=== PATIENT | male | born 1940 | race Caucasian/White ===

== ENCOUNTER 2017-06-22 19:58 | Emergency (ER) | payer BC ==
[2017-06-22 20:01] VITALS: BP 159/74; PULSE 80; RESP 22; TEMP 98.3; O2SAT 95
[2017-06-22] MEDS ORDERED: SODIUM CHLORIDE 0.9% FLUSH 10 ML FLUSH IVF PRN (20:45)
[2017-06-22] MEDS ORDERED: RESP: BUDESONIDE 0.5 MG/2 ML NEB NEB ONE (20:45)
[2017-06-22] MEDS ORDERED: methylPREDNISolone SOD SUCC 125 MG/2 ML VIAL IV PUSH ONE (20:45)
[2017-06-22] MEDS: RESP: ALBUTEROL 2.5 MG/IPRATROPIUM 0.5 MG NEB (SCH) INH ×2 (20:55→20:56)
--- NOTE | 2017-06-22 20:59 | PD ---
HPI Chief Complaint: Respiratory Symptoms Time Seen by Provider: 20:36 Travel History International Travel<30 days: No Contact w/Intl Traveler<30days: No Traveled to known affect area: No History of Present Illness HPI Patient is a 76-year-old male presenting to emergency for evaluation of chest congestion, wheezing, cough. Patient states his symptoms have been ongoing for 6 weeks, he reports green sputum. He denies any fever, chills, nausea, vomiting , chest pain. Patient was seen and evaluated by his primary doctor prior to leaving [place] 4 weeks ago, he has COPD and has not been utilizing his nebulizer or rescue inhaler. [facility] Past Medical History Cancer: Yes (stomach) COPD: Yes Diabetes: Yes Hypertension: Yes Social History Alcohol Use: No Tobacco Use: No (quit 15 years ago) Substance Use: No Allergies-Medications (Allergen,Severity, Reaction): Coded Allergies: No Known Allergies (Unverified , 06/22/17) Reported Meds & Prescriptions Reported Meds & Active Scripts Active Ventolin Hfa 18 GM Inh (Albuterol Sulfate) 90 Mcg/Act Aer 2 Puff INH Q4-6H PRN Azithromycin 250 Mg Tab 250 Mg PO DIRECTED Take 2 tabs (500 mg) on day 1 then 1 tab daily x 4 days. Prednisone 20 Mg Tab 40 Mg PO DAILY 7 Days Take 40 mg (2 tablets) daily for 5 days Albuterol Neb (Albuterol Sulfate) 2.5 Mg/3 Ml Neb 2.5 Mg NEB Q4HR NEB PRN Nebulizer/Adult Mask (N/A) 1 Kit Kit Kit .ROUTE DIRECTED Nebulizer 1 Mis Mis Ea .ROUTE DIRECTED Review of Systems Except as stated in HPI: all other systems reviewed are Neg General / Constitutional: No: Fever, Chills HENT: No: Headaches Cardiovascular: No: Chest Pain or Discomfort Respiratory: Positive: Cough, Shortness of Breath, Wheezing, No: Orthopnea, Pleuritic Pain Gastrointestinal: No: Nausea, Vomiting, Abdominal Pain Neurologic: No: Weakness, Dizziness, Syncope, Focal Abnormalities Physical Exam Narrative GENERAL: Overweight, well-developed, alert elderly male. Resting comfortably in no acute distress. SKIN: Warm and dry. HEAD: Atraumatic. Normocephalic. EYES: Pupils equal and round. No scleral icterus. No injection or drainage. ENT: No nasal bleeding or discharge. Mucous membranes pink and moist. NECK: Trachea midline. No JVD. CARDIOVASCULAR: Regular rate and rhythm. RESPIRATORY: Expiratory wheezing throughout, diminished in bases. No nasal flaring, no accessory muscle use. GASTROINTESTINAL: Abdomen soft, non-tender, nondistended. Hepatic and splenic margins not palpable. MUSCULOSKELETAL: Extremities without clubbing, cyanosis, or edema. No obvious deformities. NEUROLOGICAL: Awake and alert. No obvious cranial nerve deficits. Motor grossly within normal limits. Five out of 5 muscle strength in the arms and legs. Normal speech. PSYCHIATRIC: Appropriate mood and affect; insight and judgment normal. Data Data Last Documented VS Vital Signs Date Time Temp Pulse Resp B/P (MAP) Pulse Ox O2 Delivery O2 Flow Rate FiO2 06/22/17 22:36 06/22/17 21:05 20 96 Aerosol Mask 06/22/17 20:01 98.3 80 Orders Orders Chest, Pa & Lat (06/22/17 20:36) Ecg Monitoring (06/22/17 20:36) Iv Access Insert/Monitor (06/22/17 20:36) Oximetry (06/22/17 20:36) Oxygen Administration (06/22/17 20:36) Methylprednisolone So Succ Inj (Solumedr (06/22/17 20:45) Albuterol-Ipratropium Neb (Duoneb Neb) (06/22/17 20:45) Sodium Chloride 0.9% Flush (Ns Flush) (06/22/17 20:45) Budesonide Neb (Pulmicort Respule Neb) (06/22/17 20:45) Ed Discharge Order (06/22/17 22:27) [facility] Medical Decision Making Medical Screen Exam Complete: Yes Emergency Medical Condition: Yes Interpretation(s) Last Impressions Chest X-Ray 06/22/172035 Signed Impressions: Service Date/Time: Thursday, June 22, 2017 20:47 - CONCLUSION: Bibasilar discoid atelectasis and/or fibrotic scarring. Karri Ornelas MD Date Time Temp Pulse Resp B/P (MAP) Pulse Ox O2 Delivery O2 Flow Rate FiO2 06/22/17 20:01 98.3 80 22 159/74 (102) 95 Room Air Differential Diagnosis COPD exacerbation versus bronchitis versus pneumonia versus other Narrative Course Patient presented for evaluation of COPD exacerbation. We'll assess a chest x- ray, DuoNeb, budesonide and IV Solu-Medrol ordered. Chest x-ray which is read by the radiologist shows discoid atelectasis and/or scarring. Patient was given DuoNeb, budesonide and Solu-Medrol. He reports improvement in his breathing and states he does not feel short of breath. Oxygen saturation was assessed at 97% on room air. Patient will be provided with a prescription for nebulizer machine, albuterol treatments as well as azithromycin and prednisone. He is encouraged to maintain compliance with inhalers. He was encouraged to return to emergency department immediately for any new or worsening symptoms. Patient verbalized understanding of these instructions. Patient is stable for discharge. Diagnosis Primary Impression: COPD exacerbation Referrals: Primary Care Physician 3 days Patient Instructions: COPD (Chronic Obstructive Pulmonary Disease) (ED), General Instructions Additional Instructions: Take medications as directed Utilize nebulizer treatments as needed and as directed Follow-up with your primary doctor in 2-3 days Return to emergency department immediately for any new or worsening symptoms Med/Other Pt SpecificInfo: Prescription(s) given Scripts Albuterol 18 GM Inh (Ventolin Hfa 18 GM Inh) 90 Mcg/Act Aer 2 PUFF INH Q4-6H Y for SHORTNESS OF BREATH, #1 INHALER 0 Refills Prov: Juana Torres 06/22/17 Azithromycin (Azithromycin) 250 Mg Tab 250 MG PO DIRECTED for Infection, #6 TAB 0 Refills Take 2 tabs (500 mg) on day 1 then 1 tab daily x 4 days. Prov: Juana TorresP 06/22/17 Prednisone (Prednisone) 20 Mg Tab 40 MG PO DAILY for 7 Days, #14 TAB 0 Refills Take 40 mg (2 tablets) daily for 5 days Prov: Juana Torres 06/22/17 Albuterol Neb (Albuterol Neb) 2.5 Mg/3 Ml Neb 2.5 MG NEB Q4HR NEB Y for SHORTNESS OF BREATH, #180 NEBULE 0 Refills Prov: Juana Torres 06/22/17 Nebulizer/Adult Mask (Nebulizer/Adult Mask) 1 Kit Kit KIT .ROUTE DIRECTED for Breathing Treatment, #1 0 Refills Prov: Juana Torres 06/22/17 Nebulizer (Nebulizer) 1 Mis Mis EA .ROUTE DIRECTED for Breathing Treatment, #1 0 Refills Prov: Juana Torres 06/22/17 Disposition: 01 DISCHARGE HOME Condition: Stable Juana Torres Jun 22, 2017 20:59
--- NOTE | 2017-06-22 21:18 | RADRPT ---
EXAM DATE/TIME: 06/22/2017 20:47 [facility] COMPARISON: No previous studies available for comparison. INDICATIONS : Shortness of breath for the past six weeks. MEDICAL HISTORY : None. SURGICAL HISTORY : None. ENCOUNTER: Initial ACUITY: 2 months PAIN SCORE: 0/10 LOCATION: Bilateral chest FINDINGS: Discoid atelectasis and/or fibrotic scarring is noted within the lung bases. No pulmonary edema is no drake. The heart is normal. Degenerative changes and scoliosis of the thoracolumbar spine are noted. CONCLUSION: Bibasilar discoid atelectasis and/or fibrotic scarring. Karri Ornelas MD on June 22, 2017 at 21:14 Board Certified Radiologist. This report was verified electronically.
[2017-06-22] MEDS ORDERED: NEBULIZER/ADULT1 KIT (22:26)
[2017-06-22] MEDS ORDERED: PRED20 PO (22:26)
[2017-06-22] MEDS ORDERED: AZIT250T3 PO (22:26)
[2017-06-22] MEDS ORDERED: NEBULIZER1 MI1 (22:26)
[2017-06-22] MEDS ORDERED: ALBU0.08 NEB (22:26)
[2017-06-22] MEDS ORDERED: VENTAER INH (22:27)
== END 2017-06-22 22:37 | disposition home or self-care (01) ==
LOC: NEPE 19:58
DX: J44.1 Chronic obstructive pulmonary disease with (acute) exacerbation (principal); E11.9 Type 2 diabetes mellitus without complications; I10 Essential (primary) hypertension; Z79.51 Long term (current) use of inhaled steroids; Z79.899 Other long term (current) drug therapy
CPT/HCPCS: 71020; 94640; 94664; 96374; 99285; J2930; J7626